=== PATIENT | male | born 2005 | race Two or more races ===

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

== ENCOUNTER 2024-03-30 23:49 | Emergency (ER) | payer MEDICAID ==
[~2024-03-30] VITALS: Ht 185.4 cm; Wt 81.0 kg
[2024-03-31 04:25] VITALS: BP 112/57; PULSE 118; RESP 18; TEMP 98.8; O2SAT 98
[2024-03-31] MEDS ORDERED: IBUP-1456 PO (04:54)
== END 2024-03-31 05:02 | disposition home or self-care (01) ==
LOC: ER 23:49
DX: S93.491A Sprain of other ligament of right ankle, initial encounter (principal); Z79.899 Other long term (current) drug therapy; W22.8XXA Striking against or struck by other objects, initial encounter; Y93.89 Activity, other specified; Y92.89 Other specified places as the place of occurrence of the external cause; Y99.8 Other external cause status
CPT/HCPCS: 73610; 73630